=== PATIENT | female | born 1945 | race Caucasian/White ===

== ENCOUNTER 2023-03-24 08:58 | Outpatient (REF) | payer MEDICARE, SELFPAY ==
--- NOTE | ~2023-03-24 | XR_ITS ---
EXAMINATION: XR ANKLE, RIGHT CLINICAL INFORMATION: Pain COMPARISON: None available. TECHNIQUE: AP, lateral, and mortise views of the right ankle. FINDINGS: There is periosteal thickening of the medial malleolus questionable for old trauma or a healing fracture. No acute fracture or dislocation. Arthritis at the tibiotalar joint. Collapse of the plantar arch. Joint space narrowing and osteophyte formation of the bones of the midfoot. Calcaneal spurs. Mild soft tissue arterial calcification. XR/XR ankle RT min 3V IMPRESSION: Question old trauma to the medial malleolus. 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 Calcaneal spurs.
== END 2023-03-24 08:59 | disposition home or self-care (01) ==
LOC: HO.HOSX 08:58
PROVIDERS: PCP Internal Medicine; Visit Provider Physician Assistant
DX: M25.571 Pain in right ankle and joints of right foot (principal); I87.8 Other specified disorders of veins; M54.16 Radiculopathy, lumbar region; T78.40XA Allergy, unspecified, initial encounter
CPT/HCPCS: 73610

== ENCOUNTER 2023-04-21 13:33 | Outpatient (REF) | payer BC, SELFPAY | END 2023-04-21 13:34 | disposition home or self-care (01) | LOC: HO.XRAY 13:33 | PROVIDERS: PCP Internal Medicine; Visit Provider Nurse Practitioner Family | DX: M51.36 Other intervertebral disc degeneration, lumbar region (principal); M47.816 Spondylosis without myelopathy or radiculopathy, lumbar region; M87.0 Idiopathic aseptic necrosis of bone; B35.1 Tinea unguium; M79.671 Pain in right foot; M79.672 Pain in left foot; M25.571 Pain in right ankle and joints of right foot; I83.813 Varicose veins of bilateral lower extremities with pain; M53.3 Sacrococcygeal disorders, not elsewhere classified | CPT/HCPCS: 72114 ==

== ENCOUNTER 2023-06-02 15:19 | Outpatient (AMB) | payer BC, SELFPAY ==
--- NOTE | 2023-06-02 15:25 | A.OFFVIS_ITS ---
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 PRIOR: Patient is a pleasant 77 years old post speaking female presents today with severe bilateral lower extremity pain, right side worse than the left. Patient reports history of right ankle injury followed by repair in 2014. She has localized significant tenderness in both lower ankles and legs is light touch, allodynia, warmth to touch, skin changes and discoloration consistent with venous insufficiency, PVD and PAD, varicose and spider veins with clusters. Patient's family reports the patient underwent vascular evaluation 2 years ago and was told to wear compression stockings and elevate her legs. Patient denies any recent vascular evaluation for worsening of symptoms in both legs. She cannot tolerate pain due to pain and pressure. Her back pain is mostly axial and does not radiate to her legs. SLR testing is negative bilaterally. Patient also has localized tenderness in the projection of bilateral sacroiliac joints. Denies numbness, tingling, burning, bladder or bowel incontinence or saddle anesthesia. No lumbar spine imaging is available today for review. 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 Recent right ankle xray showed question old trauma to the medial malleo angie. 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 Calcaneal spurs. Patient was [place] [facility] [place] and was prescribed topical compound cream. Patient ambulates with significant antalgic gait with limping and uses cane. [facility] Medical History History of high blood pressure History of high cholesterol Social History Alcohol intake: former Patient Tobacco Use Status: Former Tobacco user Current occupational status: retired Review of Systems Const All systems reviewed & are unremarkable except as noted in HPI and below Physical Exam General: Appears afebrile. Alert and oriented. Mood and affect appropriate. Follows and participates in conversation appropriately. Respiratory effort is unlabored. No cough. Able to transition from sit to stand with assistance from family. Uses cane with ambulation. Antalgic gait with limping. Back/Spine/Pelvis Other: Lumbar extension reproduces significant pain, mild pain with flexion. Cervical Spine: cervical ROM normal and No Cervical spine tenderness Thoracic/Lumbar Spine: thoracic and lumbar spine normal to inspection, Lasegue's sign negative, straight leg raise negative bilaterally, pain with thoraco-lumbar ROM, paraspinal muscle tenderness, thoraco-lumbar ROM limited, No thoracic spinal tenderness and lumbar spinal tenderness at L4 and at L5 Sacroiliac joints: bilaterally tender to palpation Results Reviewed Results Reviewed: XR LUMBOSACRAL SPINE WITH OBLIQUES 04/21/23 CLINICAL INFORMATION: Intravertebral disc degeneration. FINDINGS: There is lumbar lordotic straightening. Multilevel mild vertebral body height losses, prolific spurring, spurring and disc space narrowings. No spondylolisthesis or spondylolysis. No significant change on flexion and extension views. Vascular calcifications. IMPRESSION: Lumbar lordotic straightening, multilevel degenerative changes with flexion-extension views as described. Assessment & Plan Assessment & Plan (1) Lumbar degenerative disc disease: Code(s): M51.36 - Other intervertebral disc degeneration, lumbar region (2) Lumbar spondylosis: Code(s): M47.816 - Spondylosis without myelopathy or radiculopathy, lumbar region (3) Sacroiliac joint pain: Code(s): M53.3 - Sacrococcygeal disorders, not elsewhere classified Plan 1. Lumbar spine imaging and report reviewed with patient and her family. Discussed treatments for axial low back pain and sacroiliac joint pain. Her pain is worse with lumbar extension. Patient is interested to proceed with diagnostic lumbar MBB for potential Sprint PNS trial. 2. Schedule Bilateral diagnostic lumbar MBBs nerve blocks with local and fluoroscopy. Anticoagulation on Pradaxa is noted. All questions were answered and the patient is in agreement with the treatment plan. Will follow up after injections and sooner if needed. Anticoagulation: Patient on anticoagulation (Pradaxa) and instructions given on when to pause with prescribing physician permission. Justification for interventional therapy: ? Patient with average pain > 6/10 ? Patient has exhausted conservative therapy The risks, consequences, alternatives, and benefits of various treatment options were discussed with the patient in great detail, including conservative management, injections and procedures. Coding Level of Care Code Est Pt Level 3 (98960) Diagnoses Lumbar degenerative disc disease M51.36 Lumbar spondylosis M47.816 Sacroiliac joint pain M53.3
[2023-06-02 15:28] VITALS: BP 149/77; PULSE 78; O2SAT 96; BMI 32.1
== END 2023-06-02 15:44 | disposition home or self-care (01) ==
PROVIDERS: PCP Internal Medicine; Visit Provider Nurse Practitioner Family
DX: M51.36 Other intervertebral disc degeneration, lumbar region (principal); M47.816 Spondylosis without myelopathy or radiculopathy, lumbar region; M53.3 Sacrococcygeal disorders, not elsewhere classified
CPT/HCPCS: 99213

== ENCOUNTER → 2023-06-02 15:19 | Outpatient (BNVA) | payer BC, SELFPAY | PROVIDERS: PCP Internal Medicine; Visit Provider Nurse Practitioner Family ==

== ENCOUNTER 2023-06-09 13:26 | Outpatient (AMB) | payer BC, SELFPAY ==
--- NOTE | 2023-06-09 13:27 | MHC.OFFVIS ---
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 Pt does have bilateral LE VV and discoloration, has Right LE swelling as well. Pt states she has aching feeling in both legs. Pt has tried wearing custom compression socks but Right LE was so painful to touch, tried wearing them for a while. 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 She reports that this all stems from a right ankle injury in repair dating back to 2014. In the interim she had been seen by vascular surgery at [facility]. They had treated her with compression stockings but had not had any significant follow-up since that time. She now presents to us for vascular evaluation. Of note she has no prior history of DVT or venous interventions. She has difficulty ambulating more than a block and she reports that the right lateral aspect of the calf is extremely sensitive. She can barely touch at times. She notes that the legs are persistently swollen. She now presents to us for vascular evaluation. Of note she quit smoking in 1995 and is a nondiabetic. [facility] Medical History History of high blood pressure History of high cholesterol Social History Alcohol intake: former Patient Tobacco Use Status: Former Tobacco user Current occupational status: retired Review of Systems Const Reports as per HPI ENT Reports no additional complaints Card Denies chest pain, Denies chest pain at rest and Denies chest pain with activity Resp Denies chest congestion and Denies cough GI Reports no additional complaints Musc Details: pain over varicosities, aching of lower extremities, swelling, cramping, heaviness and tiredness, itching Denies abnormal gait Skin/Breast Reports pruritus and Denies wounds Neuro Reports no additional complaints and Denies abnormal gait Psych Denies no additional complaints Physical Exam Vital Signs: BMI result Body Mass Index 32.1 Const General: cooperative, healthy appearing and comfortable Orientation/consciousness: oriented to person, oriented to place and oriented to time Neck Carotids: no bruits Chest Chest palpation & inspection: normal inspection of the chest and normal palpation of entire chest wall Resp Effort & Inspection: normal respiratory effort and able to speak in complete sentences Cardio Other: Bilateral DP signals Rate: regular rate Heart sounds: S1 normal heart sound present and S2 normal heart sound present Peripheral pulses: Peripheral pulses 2+ throughout GI Inspection: Yes normal to inspection Skin Other: +2 edema, large rope-like varicosities greater than 4 mm CEAP Classification C4 - skin color changes Ep - Etiology Primary As - superficial veins P - reflux General skin exam: dry skin Neuro General: oriented to person, oriented to place and oriented to time Extrem Right lower extremity: full ROM, normal capillary refill and edema Left lower extremity: full ROM, normal capillary refill and edema Psych Mental Status: mental status grossly normal Assessment & Plan Assessment & Plan (1) PAD (peripheral artery disease): Code(s): I73.9 - Peripheral vascular disease, unspecified Plan: Of concern here is that the patient may have an element of peripheral vascular disease. She has nonpalpable pulses and a remote history of smoking. I have taken the liberty of ordering noninvasive arterial testing and the patient will follow up with us after testing. (2) Varicose veins of right lower extremity with inflammation: Code(s): I83.11 - Varicose veins of right lower extremity with inflammation Plan: The patient may have an element of venous insufficiency. She does have significant swelling with pain and discomfort along with skin discoloration. Is unclear what the findings were approximately [address] Ghosh at [facility] but I have taken the liberty of ordering repeat venous insufficiency testing. She will follow up with us after testing. We did discuss continued conservative measures including compression elevation and exercise. Thank you for allowing us to assist in her care. If there are any questions or concerns please do not hesitate to contact us Coding Level of Care Code Est Pt Level 4 (91362) Diagnoses PAD (peripheral artery disease) I73.9 Varicose veins of right lower extremity with inflammation I83.11
[2023-06-09 13:28] VITALS: BMI 32.1
== END 2023-06-09 13:59 | disposition home or self-care (01) ==
PROVIDERS: PCP Internal Medicine; Visit Provider Surgery Vascular Surgery
DX: I73.9 Peripheral vascular disease, unspecified (principal); I83.11 Varicose veins of right lower extremity with inflammation
CPT/HCPCS: 99214

== ENCOUNTER → 2023-06-09 13:26 | Outpatient (BNVA) | payer BC, SELFPAY | PROVIDERS: PCP Internal Medicine; Visit Provider Surgery Vascular Surgery ==

== ENCOUNTER 2023-07-15 05:59 | Outpatient (REF) | payer BC, SELFPAY ==
--- NOTE | ~2023-07-15 | FL_ITS ---
EXAMINATION: XR FLUOROSCOPY WITH IMAGES CLINICAL INFORMATION: Spondylosis without myelopathy or radiculopathy, lumbar region COMPARISON: None available. TECHNIQUE: Fluoroscopy Supervised By: Dr. Chencho Campbell. Fluoroscopy Time: 0.2 minutes. Cumulative Dose: 3.63 mGy. DAP: 0.0355 mGycm2. Images: 3. FINDINGS: Images demonstrate needles and injected contrast the regions of the bilateral L4-L5 and L5-S1 neural foramina. FL/FL guidance in treatment room IMPRESSION: Fluoroscopy provided for pain management procedure.
== END 2023-07-15 06:00 | disposition home or self-care (01) ==
LOC: CF 05:59
PROVIDERS: Visit Provider Internal Medicine
DX: M47.816 Spondylosis without myelopathy or radiculopathy, lumbar region (principal)
CPT/HCPCS: 64493; 64494; J2795; Q9967

== ENCOUNTER 2023-07-15 08:06 | Outpatient (AMB) | payer BC, SELFPAY ==
[2023-07-15 08:14] VITALS: BP 120/72; PULSE 76; RESP 14; O2SAT 96
--- NOTE | 2023-07-15 08:14 | A.OFFVIS_ITS ---
Intake Vital Signs 07/15/23 08:14 BP 120/72 Blood Pressure Location Lt brachial Position Sitting Respiration 14 Pulse 76 Pulse Source Pulse Oximeter Pulse Oximetry (%) 96 Oxygen Delivery Method Room Air Intake Visit Reasons: viraj Dx L3-L4-L5 MBB Allergies MULU Inhibitors Allergy (Unknown, Verified 07/15/23 08:15) Unknown amlodipine Allergy (Unknown, Verified 07/15/23 08:15) Angioedema atenolol Allergy (Unknown, Verified 07/15/23 08:15) Palpitations trospium Allergy (Unknown, Verified 07/15/23 08:15) Gastrointestinal Upset HPI viraj Dx L3-L4-L5 MBB HPI Details Patient presents for scheduled procedure. Denies any recent cough, cold, infection, fever or other significant changes in medical history since last office visit. [facility] Medical History History of high blood pressure History of high cholesterol Social History Alcohol intake: former Patient Tobacco Use Status: Former Tobacco user Current occupational status: retired Physical Exam Vital Signs: Last Vital Signs Pulse 76 07/15/23 08:14 Resp 14 07/15/23 08:14 BP 120/72 07/15/23 08:14 Pulse Ox 96 07/15/23 08:14 Oxygen Delivery Method Room Air 07/15/23 08:14 Office Procedures Lumbar/Sacral Facet Inj Details: Lumbar Medial Branch Block, Bilateral L3, L4 medial branches and L5 Dorsal Ramus (2 levels, 3 nerves) After obtaining written consent, pre-procedure blood pressure and pulse were recorded and are in the nursing record for review. The patient was placed in a prone position. The respective lumbosacral area was prepped with chloraprep and draped in sterile fashion. The skin over the target medial branch nerves was anesthetized with 0.5% lidocaine. A 22 gauge 3.5 inch needle was inserted into the target medial branch nerve under fluoroscopic guidance. No paresthesias were elicited with needle placement and aspiration was negative for blood and CSF. Next, 0.2cc of Isovue 150 was injected to verify positioning. Next 0.5 ml 0.5% ropivicaine was injected (0.5cc total per level). The identical procedure was performed at the remaining levels. The skin was cleansed and a sterile bandage was applied. Following the procedure the patient's vital signs were stable. The patient tolerated the procedure well and no complications were encountered. Following the procedure the patient's vital signs were stable. The patient was discharged home in good condition with post-procedural instructions. Time Out: Immediately prior to the procedure, the following was verbally confirmed that there is a signed consent form and that the correct patient, planned procedure, site and side are consistent with documentation and that necessary equipment and/or blood products are available prior to the start of the case. Complications: none EBL: <5 cc 28174 - second level, with Fluoroscopy (bilateral) Procedure code (CPT) selection complete Assessment & Plan Assessment & Plan (1) Lumbar spondylosis: Code(s): M47.816 - Spondylosis without myelopathy or radiculopathy, lumbar region Plan Patient is status post bilateral diagnostic L3, L4 MB and L5 DR blocks. Patient tolerated procedure well and was discharged home in stable condition with discharge instructions. All questions were answered. We will follow-up via telephone or in clinic to assess response to therapy. A follow-up appointment was made during today's visit. Orders: Orders FL guidance in treatment room 07/15/23 M47.816 - Spondylosis without myelopathy or radiculopathy, lumbar region Coding Level of Care Code Procedure Only Diagnoses Lumbar spondylosis M47.816 CPT Codes Facet Injection-Lumbar/Sacral - CPT: 42954 - second level, with Fluoroscopy ([id number])
== END 2023-07-15 08:52 | disposition home or self-care (01) ==
LOC: HO.PMCPRC 08:06
PROVIDERS: PCP Internal Medicine; Visit Provider Internal Medicine
DX: M47.816 Spondylosis without myelopathy or radiculopathy, lumbar region (principal)
CPT/HCPCS: 64493; 64494

== ENCOUNTER 2023-07-17 09:06 | Outpatient (AMB) | payer BC, SELFPAY ==
--- NOTE | 2023-07-17 09:07 | MHC.OFFVIS ---
Intake Vital Signs 07/17/23 09:11 Height 5 ft 1 in Weight 169 lb 8 oz BMI 32.0 BP 134/68 Blood Pressure Location Lt brachial Position Sitting Pulse 80 Pulse Source Pulse Oximeter Pulse Oximetry (%) 96 Oxygen Delivery Method Room Air Intake Visit Reasons: s/p viraj Dx L3-L4-L5 MBB Intake Note: Pain today 0/10. 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 Campbell. Patient is Kinyarwanda speaking female. She is accompanied by her family who assist with translation per patient's request. Patient reports 100% pain relief since procedure on Thursday and continues to experience ongoing pain relief. Patient reports her activity, mobility, functioning and sleep significantly improved since nerve blocks. She is able to complete house chores and social activities without pain for these past 2 days. Patient states she had short right lateral thigh and lower leg numbness without weakness for few hours post procedures that resolved on its own. Patient is interested to proceed with Sprint PNS trial, starting with right side first. Her family reports they feel comfortable to care for patient's Sprint device and change dressings for 2 months of therapy. Denies any recent cough, cold, infection, fever or other significant changes in medical history since last office visit. Past Procedures: 07/15/23: Bilateral Diagnostic L3-L4 DR L5 MB-100% pain relief for 48 hours PRIOR: Patient is a pleasant 77 years old post speaking female presents today with severe bilateral lower extremity pain, right side worse than the left. Patient reports history of right ankle injury followed by repair in 2014. She has localized significant tenderness in both lower ankles and legs is light touch, allodynia, warmth to touch, skin changes and discoloration consistent with venous insufficiency, PVD and PAD, varicose and spider veins with clusters. Patient's family reports the patient underwent vascular evaluation 2 years ago and was told to wear compression stockings and elevate her legs. Patient denies any recent vascular evaluation for worsening of symptoms in both legs. She cannot tolerate pain due to pain and pressure. Her back pain is mostly axial and does not radiate to her legs. SLR testing is negative bilaterally. Patient also has localized tenderness in the projection of bilateral sacroiliac joints. Denies numbness, tingling, burning, bladder or bowel incontinence or saddle anesthesia. No lumbar spine imaging is available today for review. 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 Recent right ankle xray showed question old trauma to the medial malleolus. 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 Calcaneal spurs. Patient was seen by our [facility] Orthopedic provider and was prescribed topical compound cream. Patient ambulates with significant antalgic gait with limping and uses cane. [facility] Medical History History of high blood pressure History of high cholesterol Social History Alcohol intake: former Patient Tobacco Use Status: Former Tobacco user Current occupational status: retired Review of Systems Const All systems reviewed & are unremarkable except as noted in HPI and below Physical Exam Vital Signs: Last Vital Signs Pulse 80 07/17/23 09:11 BP 134/68 07/17/23 09:11 Pulse Ox 96 07/17/23 09:11 Oxygen Delivery Method Room Air 07/17/23 09:11 BMI result Body Mass Index 32.0 General: Appears afebrile. Alert and oriented. Mood and affect appropriate. Follows and participates in conversation appropriately. Respiratory effort is unlabored. No cough. Able to transition from sit to stand with assistance from family. Uses cane with ambulation. Antalgic gait with limping. Back/Spine/Pelvis Other: Lumbar extension reproduces significant pain, mild pain with flexion. Cervical Spine: cervical ROM normal and No Cervical spine tenderness Thoracic/Lumbar Spine: thoracic and lumbar spine normal to inspection, Lasegue's sign negative, straight leg raise negative bilaterally, pain with thoraco-lumbar ROM, paraspinal muscle tenderness, thoraco-lumbar ROM limited, No thoracic spinal tenderness and lumbar spinal tenderness at L4 and at L5 Sacroiliac joints: bilaterally tender to palpation Assessment & Plan Assessment & Plan (1) Lumbar degenerative disc disease: Code(s): M51.36 - Other intervertebral disc degeneration, lumbar region (2) Lumbar spondylosis: Code(s): M47.816 - Spondylosis without myelopathy or radiculopathy, lumbar region (3) Sacroiliac joint pain: Code(s): M53.3 - Sacrococcygeal disorders, not elsewhere classified Plan 1. Patient is status post bilateral diagnostic lumbar MBB nerve blocks with 100% ongoing pain relief with significant improvement in her ADLs, functioning, sleep and social interactions. 2. Schedule Bilateral L3 medial branch Sprint PNS trial with local and fluoroscopy. Anticoagulation on Pradaxa is noted. All questions were answered and the patient is in agreement with the treatment plan. Follow up after Sprint trial and sooner if needed. Anticoagulation: Patient on anticoagulation (Pradaxa) and instructions given on when to pause with prescribing physician permission. Justification for interventional therapy: ? Patient with average pain > 6/10 ? Patient has exhausted conservative therapy ? Diagnostic lumbar MBB provided 100% for 48 hours The risks, consequences, alternatives, and benefits of various treatment options were discussed with the patient in great detail, including conservative management, injections and procedures. Coding Level of Care Code Est Pt Level 4 (85779) Diagnoses Lumbar degenerative disc disease M51.36 Lumbar spondylosis M47.816 Sacroiliac joint pain M53.3
[2023-07-17 09:11] VITALS: BP 134/68; PULSE 80; O2SAT 96; BMI 32.0
== END 2023-07-17 09:30 | disposition home or self-care (01) ==
PROVIDERS: PCP Internal Medicine; Visit Provider Nurse Practitioner Family
DX: M51.36 Other intervertebral disc degeneration, lumbar region (principal); M47.816 Spondylosis without myelopathy or radiculopathy, lumbar region; M53.3 Sacrococcygeal disorders, not elsewhere classified
CPT/HCPCS: 99214

== ENCOUNTER → 2023-07-17 09:06 | Outpatient (BNVA) | payer BC, SELFPAY | PROVIDERS: PCP Internal Medicine; Visit Provider Nurse Practitioner Family ==

== ENCOUNTER 2023-07-28 10:29 | Outpatient (REF) | payer MEDICARE, SELFPAY ==
--- NOTE | ~2023-07-28 | US_ITS ---
EXAMINATION: US LOWER EXTREMITY VENOUS (REFLUX EXAM), BILATERAL CLINICAL INDICATION: Varicose veins of the right lower extremity COMPARISON: None. TECHNIQUE: Color flow triplex imaging and compression Doppler was performed to evaluate both the deep and the superficial systems bilaterally. To evaluate the superficial system, the examination was performed in the upright position. Color-flow Doppler ultrasound and compression ultrasound were utilized. In addition, maneuvers were utilized to demonstrate reflux. FINDINGS: RIGHT: 1. DEEP VENOUS ULTRASOUND OF THE RIGHT LOWER EXTREMITY: Common Femoral Vein: Compressible, normal respiratory variation and augmented flow. Popliteal Vein: Compressible, normal augmentation. Deep Venous Reflux: There is no evidence of reflux in the deep system in either the common femoral vein or the popliteal vein. There is no evidence of a Pan's cyst. 2. SUPERFICIAL ULTRASOUND WITH DOPPLER OF RIGHT LOWER EXTREMITY: RIGHT GREAT SAPHENOUS VEIN: Saphenofemoral Junction: 4 mm. No reflux. Proximal Thigh: 4 mm. No reflux. Mid Thigh: 2 mm. No reflux. Above Knee: 3 mm. No reflux. Below Knee: 3 mm. 2528 ms of reflux. Mid Calf: 2 mm. No reflux. Ankle: 3 mm. No reflux. DUPLICATED GREAT SAPHENOUS VEIN: None RIGHT SMALL SAPHENOUS VEIN: Proximal: 2 mm. 2416 ms of reflux. Distal: 2 mm. 2132 ms of reflux. PERFORATORS: None LEFT: 1. DEEP VENOUS ULTRASOUND OF THE LEFT LOWER EXTREMITY: Common Femoral Vein: Compressible, normal respiratory variation and augmented flow. Popliteal Vein: Compressible, normal augmentation. Deep Venous Reflux: There is no evidence of reflux in the deep system in either the common femoral vein or the popliteal vein. There is no evidence of a Pan's cyst. 2. SUPERFICIAL ULTRASOUND WITH DOPPLER OF LEFT LOWER EXTREMITY: LEFT GREAT SAPHENOUS VEIN: Saphenofemoral Junction: 5 mm. No reflux. Proximal Thigh: 6 mm. 2820 ms of reflux. Mid Thigh: 3 mm. 1932 ms of reflux. Above Knee: 2 mm. No reflux. Below Knee: 3 mm. No reflux. Mid Calf: 3 mm. 4 to 8 milliseconds of reflux. Ankle: 3 mm. No reflux. DUPLICATED GREAT SAPHENOUS VEIN: None LEFT SMALL SAPHENOUS VEIN: Proximal: 3 mm. No reflux. Mid: 4 mm. 2344 ms of reflux. Distal: 3 mm. No reflux. PERFORATORS: None US/US venous duplex LE BI IMPRESSION: Right lower extremity: 1. Abnormal venous reflux seen within the right small saphenous vein. 2. Abnormal venous reflux within a short segment of the right great saphenous vein at the level below the knee. 3. No evidence of deep vein thrombosis. Left lower extremity: 1. Abnormal venous reflux within the left great saphenous vein at the level of the proximal and mid thigh. 2. Abnormal short segment venous reflux within the left saphenous vein at the level of the mid calf. 3. No evidence of deep vein thrombosis. Abnormal lower extremity venous reflux times: Superficial and deep calf veins: >500 ms Femoropopliteal veins: >1000 ms Perforating veins: >350 ms Emiliana N, Avelino J, Alexey L, Hernan AK, Luis SS, Katharine Sarmiento M, Viviane WH. Definition of venous reflux in lower-extremity veins.J Vasc Surg. 2003; 38:[id number].
== END 2023-07-28 10:30 | disposition home or self-care (01) ==
LOC: HO.US 10:29
PROVIDERS: PCP Internal Medicine; Visit Provider Surgery Vascular Surgery
DX: I83.11 Varicose veins of right lower extremity with inflammation (principal)
CPT/HCPCS: 93970

== ENCOUNTER 2023-08-04 13:32 | Outpatient (REF) | payer MEDICARE, SELFPAY ==
--- NOTE | ~2023-08-04 | US_ITS ---
EXAMINATION: NONINVASIVE ASSESSMENT OF THE ARTERIES OF BOTH LOWER EXTREMITIES INCLUDING PVR EXAM AND BILATERAL LOWER EXTREMITY DUPLEX CLINICAL INFORMATION: Peripheral vascular disease COMPARISON: None TECHNIQUE: Ankle pulse volume recordings, ankle pressure measurements and ankle brachial indices were obtained of the lower extremity arterial system bilaterally in addition to duplex Doppler techniques with wave form analysis and measurement of velocities in the common femoral, profunda femoral, superficial femoral, popliteal, tibial and peroneal arteries. The study was performed only at rest. FINDINGS: RIGHT LEG 1. Right Ankle-Brachial Index: 0.89 (higher of the DP/PT) >0.97-1.25 = normal - no significant arterial disease 0.75-0.96 = mild peripheral arterial disease 0.5-0.74 = moderate peripheral arterial disease <0.50 = severe peripheral arterial disease <0.30 = critical arterial disease 2. Segmental Pressures (mmHg): Brachial: 138 Ankle: DP 140, unable to tolerate contrast for posterior tibial 3. PVR Waveforms: Ankle: Abnormal 4. Direct Duplex: Common femoral artery: 124 cm/s, Multiphasic Profunda femoris artery: 43.9 cm/s, Multiphasic Superficial femoral artery (proximal): 79.6 cm/s, Multiphasic Superficial femoral artery (mid): 108 cm/s, Multiphasic Superficial femoral artery (distal): 61.5 cm/s, Multiphasic Proximal Popliteal artery: 65 cm/s, Multiphasic Distal popliteal artery: 44.5 cm/s, Multiphasic Mid posterior tibial artery: 58.5 cm/s, Multiphasic Proximal peroneal artery: 41.9 cm/s, Multiphasic Distal peroneal artery: 23.9 cm/s, monophasic Dorsalis pedis: 43.9 cm/s, multiphasic LEFT LE. Left Ankle-Brachial Index: 0.68 (higher of the DP/PT) >0.97-1.25 = normal - no significant arterial disease 0.75-0.96 = mild peripheral arterial disease 0.5-0.74 = moderate peripheral arterial disease <0.50 = severe peripheral arterial disease <0.30 = critical arterial disease 2. Segmental Pressures: Brachial: 158 Ankle: PT 76, DP 108 3. PVR Waveforms: Ankle: Abnormal 4. Direct Duplex: Common femoral artery: 124 cm/s, Multiphasic Profunda femoris artery: 36.9 cm/s, Multiphasic Superficial femoral artery (proximal): 56.4 cm/s, Multiphasic Superficial femoral artery (mid): 70.2 cm/s, Multiphasic Superficial femoral artery (distal): 60.8 cm/s, monophasic There is a collateral vessel of the distal femoral artery with peak systolic velocity 51.5 cm/s. Waveform is monophasic. Proximal Popliteal artery: 52.5 cm/s, Multiphasic Distal popliteal artery: 18.7 cm/s, monophasic Mid posterior tibial artery: 15.1 cm/s, monophasic Peroneal artery: 33.8 cm/s, monophasic Dorsalis pedis: 48 cm/s, monophasic US/US arterial duplex LE BI IMPRESSION: On the right the ankle-brachial index is 0.89 compatible with mild peripheral arterial disease. PVR waveforms low amplitude and abnormal. Other than the peroneal artery, where the waveform is monophasic, there is multiphasic flow throughout the right lower extremity. On the left ankle-brachial index is 0.68 compatible with moderate peripheral arterial disease. There are monophasic waveforms at the level of the distal femoral artery and distal popliteal artery suggesting disease at the proximal to midportion of the superficial femoral and popliteal arteries.
== END 2023-08-04 13:33 | disposition home or self-care (01) ==
LOC: HO.US 13:32
PROVIDERS: PCP Internal Medicine; Visit Provider Surgery Vascular Surgery
DX: I73.9 Peripheral vascular disease, unspecified (principal)
CPT/HCPCS: 93923; 93925

== ENCOUNTER 2023-08-26 08:22 | Day surgery (SDC) | payer MEDICARE, SELFPAY ==
--- NOTE | ~2023-08-26 | FL_ITS ---
EXAMINATION: XR FLUOROSCOPY WITH IMAGES CLINICAL INFORMATION: Right lumbar 3 medial branch SPRINT. COMPARISON: None available. TECHNIQUE: Fluoroscopy Supervised By: Dr. Chencho Campbell. Fluoroscopy Time: 0.1 minute. Cumulative Dose: 3.29 mGy. DAP: 0.549 Gycm2. Images: 2. FINDINGS: Images demonstrate leads adjacent to posterior right lateral L4 and L5 vertebrae FL/FL guidance in OR IMPRESSION: Fluoroscopy guidance for pain management
[2023-08-26 08:48] VITALS: BMI 31.1
[2023-08-26 08:50] VITALS: BP 166/86; PULSE 82; RESP 16; TEMP 36.2; O2SAT 97
--- NOTE | 2023-08-26 11:02 | MHC.SHP ---
Pre-Procedural Eval Section A Date of Service: 08/26/23 The patient is an INPATIENT: No Changes since office visit: Yes Patient answered all questions The History & Physical has been completed within 30 days and I have reviewed it.: Yes Section B Chief Complaint: Spondylosis without myelopathy or radiculopathy Relevant Family History (Specify if Yes): No Relevant Social History: None Present Medications: see Short Stay Collaborative assessment Medical History: No relevant PMH History of Previous Operations: No relevant previous surgery Allergies: Allergies Allergy/AdvReac Type Severity Reaction Status Date / Time MULU Inhibitors Allergy Unknown Unknown Verified 08/26/23 08:40 amlodipine Allergy Unknown Angioedema Verified 08/26/23 08:40 atenolol Allergy Unknown Palpitation Verified 08/26/23 08:40 s trospium Allergy Unknown Gastrointestinal Verified 08/26/23 08:40 Upset Review of Systems Sugical H&P ROS: Negative: Constitution, Cardiovascular and Respiratory Exam Surgical H&P Exam: Normal: HEENT, Normal: Heart and Normal: Lungs Plan Diagnosis/Plan: Unchanged I have reviewed the history and physical and performed a pertinent physical examination on my patient. No changes have occurred unless specified. Time Spent With Patient Time: Total time managing care of this patient today ____ minutes.
--- NOTE | 2023-08-26 11:02 | PM.OP ---
Brief Operative Note Date of Service: 08/26/23 Pre-op diagnosis: Intractable low back pain Post-op diagnosis: same Procedure: Temporary right L3 medial branch nerve stimulator placement Implants: Sprint temporary PNS system Surgeon: Chencho Campbell MD Anesthesia: local Was an Animal Cytologist used for this Procedure?: No Estimated blood loss (mL): 0 Pathology: none sent Condition: stable Disposition: same day
--- NOTE | 2023-08-26 11:03 | W.PM.OPN ---
Operative Note Operative Note Date of Service: 08/26/23 Narrative: Lumbar Medial Branch Nerve Stimulation Lead Placement, SPR (Sprint) System, Right L3 ? After the risks, benefits and alternatives were discussed with the patient and informed consent was obtained, patient was placed in the prone position and padded to foster comfort. The skin overlying the lumbosacral spine was prepped and draped in sterile fashion. Fluoroscopy was used to identify the spinous process and lamina in the center of the patient?s region of pain. After identifying and marking the intended target along the course of the medial branch nerve, the skin around the planned entry point and the subcutaneous tissues were injected with lidocaine 1%. An introducer needle and stimulating probe were assembled, inserted and advanced along the intended course of the medial branch nerve as it traverses the lamina medial and inferior to the zygapophyseal joint, taking care to maintain the proper depth of insertion as the introducer is advanced under fluoroscopic guidance. The introducer needle was delivered to a location in proximity to the nerve. Multiple stimulation parameters were used to deliver stimulation to the target medial branch nerve in concert with stimulating at multiple positions around the nerve. Nerve target acquisition was confirmed noting generation of paresthesias in the paravertebral regions corresponding to the level being stimulated. Various electrical parameter combinations were tested, and the lead location was adjusted (physically relocated) until the patient indicated paresthesia/muscle tension overlapping the distribution of the patient?s typical region of pain. The stimulating probe was removed from the introducer and a percutaneous lead was guided through the needle and delivered to a location in similar proximity to the nerve. Final location was verified with electrical stimulation and documented with fluoroscopy. The introducer needle was removed, and the exposed end of the percutaneous lead was attached to an external stimulator unit. Various electrical parameter combinations were again tested until the patient indicated paresthesia or muscle tension overlapping the distribution of the patient?s typical region of pain. After confirming that lead impedance was in the normal range, the external unit was detached, the needle was removed, and the lead was anchored at the skin. The lead was threaded into the connector block and electrical continuity and desired patient response was confirmed. The connector block was attached to the external stimulator unit. The site was covered with a sterile occlusive dressing. The patient was observed for stability of vital signs and comfort.
[2023-08-26 11:05] VITALS: BP 148/81; PULSE 82; RESP 16; TEMP 36.2; O2SAT 95
== END 2023-08-26 11:39 | disposition home or self-care (01) ==
PROVIDERS: PCP Internal Medicine; Visit Provider Internal Medicine
PROC: (CPT 64555; principal; 2023-08-26 09:30)
DX: M47.816 Spondylosis without myelopathy or radiculopathy, lumbar region (principal); M51.36 Other intervertebral disc degeneration, lumbar region; M53.3 Sacrococcygeal disorders, not elsewhere classified; M25.571 Pain in right ankle and joints of right foot; M19.071 Primary osteoarthritis, right ankle and foot; M25.572 Pain in left ankle and joints of left foot; M79.661 Pain in right lower leg; M79.662 Pain in left lower leg; R26.89 Other abnormalities of gait and mobility; Z99.89 Dependence on other enabling machines and devices; I10 Essential (primary) hypertension; E78.00 Pure hypercholesterolemia, unspecified; Z79.899 Other long term (current) drug therapy; Z88.8 Allergy status to other drugs, medicaments and biological substances; Z98.890 Other specified postprocedural states; Z87.891 Personal history of nicotine dependence
CPT/HCPCS: 64555; C1778

== ENCOUNTER → 2023-08-26 08:22 | Outpatient (BNV) | payer MEDICARE, SELFPAY | PROVIDERS: PCP Internal Medicine; Visit Provider Internal Medicine | DX: M47.816 Spondylosis without myelopathy or radiculopathy, lumbar region (principal) | CPT/HCPCS: 64555 ==

== ENCOUNTER 2023-09-01 10:10 | Outpatient (AMB) | payer BC, SELFPAY ==
--- NOTE | 2023-09-01 10:18 | MHC.OFFVIS ---
Intake Vital Signs 09/01/23 10:22 Height 5 ft 2 in Weight 170 lb BMI 31.1 BP 141/62 H Blood Pressure Location Lt brachial Position Sitting Pulse 56 Pulse Source Pulse Oximeter Pulse Oximetry (%) 98 Oxygen Delivery Method Room Air Intake Visit Reasons: s/p Right L3 MB Sprint Allergies MULU Inhibitors Allergy (Unknown, Verified 09/01/23 10:22) Unknown amlodipine Allergy (Unknown, Verified 09/01/23 10:22) Angioedema atenolol Allergy (Unknown, Verified 09/01/23 10:22) Palpitations trospium Allergy (Unknown, Verified 09/01/23 10:22) Gastrointestinal Upset HPI HPI Comments History of Present Illness Details Patient presents today to assess response to Right L3 medial branch Sprint PNS lead placement on 08/26/[address] Campbell. Patient is Spanish speaking female and is accompanied by her daughter who assists with translation per patient's request. Patient reports 100% pain relief for right axial low back pain and reports minimal improvement in her left sided back pain as well. She reports improved functioning, mobility and sleep. She is scheduled to undergo left L3 MB Sprint lead placement next Thursday. Her daughter reports she feels comfortable to care for patient's Sprint device and change dressings. Alfredo Frederick is present today and changed patient's dressing and instructed family on device care and dressing changes. Denies any recent cough, cold, infection, fever or other significant changes in medical history since last office visit. The dressing was removed and changed today by Alfredo Frederick. Lead insertion sites look clean, dry, intact, no redness, no swelling, no pathological discharge. Past Procedures: 08/26/23: Right L3 MB Sprint PNS-100% pain relief 07/15/23: Bilateral Diagnostic L3-L4 DR L5 MB-100% pain relief for 48 hours PRIOR: Patient is a pleasant 77 years old post speaking female presents today with severe bilateral lower extremity pain, right side worse than the left. Patient reports history of right ankle injury followed by repair in 2014. She has localized significant tenderness in both lower ankles and legs is light touch, allodynia, warmth to touch, skin changes and discoloration consistent with venous insufficiency, PVD and PAD, varicose and spider veins with clusters. Patient's family reports the patient underwent vascular evaluation 2 years ago and was told to wear compression stockings and elevate her legs. Patient denies any recent vascular evaluation for worsening of symptoms in both legs. She cannot tolerate pain due to pain and pressure. Her back pain is mostly axial and does not radiate to her legs. SLR testing is negative bilaterally. Patient also has localized tenderness in the projection of bilateral sacroiliac joints. Denies numbness, tingling, burning, bladder or bowel incontinence or saddle anesthesia. No lumbar spine imaging is available today for review. 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 Recent right ankle xray showed question old trauma to the medial malleolus. 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 Calcaneal spurs. Patient was seen by our [facility] Orthopedic provider and was prescribed topical compound cream. Patient ambulates with significant antalgic gait with limping and uses cane. [facility] Medical History History of high blood pressure History of high cholesterol Social History Alcohol intake: former Patient Tobacco Use Status: Former Tobacco user Current occupational status: retired Review of Systems Const All systems reviewed & are unremarkable except as noted in HPI and below Physical Exam Vital Signs: Last Vital Signs Pulse 56 09/01/23 10:22 BP 141/62 H 09/01/23 10:22 Pulse Ox 98 09/01/23 10:22 Oxygen Delivery Method Room Air 09/01/23 10:22 BMI result Body Mass Index 31.1 General: Appears afebrile. Alert and oriented. Mood and affect appropriate. Follows and participates in conversation appropriately. Respiratory effort is unlabored. No cough. Able to transition from sit to stand with assistance from family. Uses cane with ambulation. Lead Insertion Site: Lead insertion sites look clean, dry, intact. Dressing changed in clinic today. Positive paresthesia at right low back at 74-80. Assessment & Plan Assessment & Plan (1) Lumbar degenerative disc disease: Code(s): M51.36 - Other intervertebral disc degeneration, lumbar region (2) Lumbar spondylosis: Code(s): M47.816 - Spondylosis without myelopathy or radiculopathy, lumbar region Plan 1. Patient is status post Right L3 MB Sprint lead placement on 08/26/23 with 100% ongoing pain relief with significant improvement in her ADLs, functioning, sleep and social interactions. She is scheduled for left side Sprint placement on 09/09/23. Anticoagulation on Pradaxa is noted instructions given on when to pause with prescribing physician permission. Family and patient educated on dressing changes and care of device. All questions were answered and the patient is in agreement with the treatment plan. Follow up after left Sprint placement and sooner if needed. Coding Level of Care Code Est Pt Level 3 (96168) Diagnoses Lumbar degenerative disc disease M51.36 Lumbar spondylosis M47.816
[2023-09-01 10:22] VITALS: BP 141/62; PULSE 56; O2SAT 98; BMI 31.1
== END 2023-09-01 10:36 | disposition home or self-care (01) ==
PROVIDERS: PCP Internal Medicine; Visit Provider Nurse Practitioner Family
DX: M51.36 Other intervertebral disc degeneration, lumbar region (principal); M47.816 Spondylosis without myelopathy or radiculopathy, lumbar region
CPT/HCPCS: 99024

== ENCOUNTER → 2023-09-01 10:10 | Outpatient (BNVA) | payer BC, SELFPAY | PROVIDERS: PCP Internal Medicine; Visit Provider Nurse Practitioner Family ==

== ENCOUNTER 2023-09-03 14:47 | Outpatient (AMB) | payer BC, SELFPAY ==
--- NOTE | 2023-09-03 14:46 | MHC.OFFVIS ---
Intake Intake Visit Reasons: follow up Art US 08/04/2023 & 07/28/23 Intake Note: Pt here for FU ART US 08/04/23 and 07/28/23 Pt says shes doing ok and theres not many changes since her last visit Allergies MULU Inhibitors Allergy (Unknown, Verified 09/03/23 14:50) Unknown amlodipine Allergy (Unknown, Verified 09/03/23 14:50) Angioedema atenolol Allergy (Unknown, Verified 09/03/23 14:50) Palpitations trospium Allergy (Unknown, Verified 09/03/23 14:50) Gastrointestinal Upset HPI follow up Art 08/04/2023 & US 07/28/23 HPI Details Very pleasant 78-year-old female presents for follow-up regarding lower extremities. She has persistent pain dating back to 2014 after in injury to the right ankle. She had been seen by [facility] vascular in the past. She now presents for follow-up with us regarding arterial and venous disease. She has had no interval changes. Of note she has been treated by Dr. Campbell who has placed a lumbar medial branch nerve stimulator. Now presents for follow-up with noninvasive arterial and venous testing. [facility] Medical History History of high blood pressure History of high cholesterol Social History Alcohol intake: former Patient Tobacco Use Status: Former Tobacco user Current occupational status: retired Review of Systems Const Reports as per HPI ENT Reports no additional complaints Card Denies chest pain, Denies chest pain at rest and Denies chest pain with activity Resp Denies chest congestion and Denies cough GI Reports no additional complaints Musc Details: pain over varicosities, aching of lower extremities, swelling, cramping, heaviness and tiredness, itching Denies abnormal gait Skin/Breast Reports pruritus and Denies wounds Neuro Reports no additional complaints and Denies abnormal gait Psych Denies no additional complaints Physical Exam Const General: cooperative, healthy appearing and comfortable Orientation/consciousness: oriented to person, oriented to place and oriented to time Neck Carotids: no bruits Chest Chest palpation & inspection: normal inspection of the chest and normal palpation of entire chest wall Resp Effort & Inspection: normal respiratory effort and able to speak in complete sentences Cardio Other: Bilateral DP signals Rate: regular rate Heart sounds: S1 normal heart sound present and S2 normal heart sound present Peripheral pulses: Peripheral pulses 2+ throughout GI Inspection: Yes normal to inspection Skin Other: +2 edema, bilateral pretibial skin discoloration CEAP Classification C4 - skin color changes Ep - Etiology Primary As - superficial veins P - reflux General skin exam: dry skin Neuro General: oriented to person, oriented to place and oriented to time Extrem Right lower extremity: full ROM, normal capillary refill and edema Left lower extremity: full ROM, normal capillary refill and edema Psych Mental Status: mental status grossly normal Results Reviewed Results Reviewed: Brief summary of venous insufficiency testing is as follows: right great saphenous vein: Focally positive right small saphenous vein: Positive right accessory vein: none present left great saphenous vein: Focally poss left small saphenous vein: Positive left accessory vein: none present Please note there is no evidence of any venous aneurysms or significant tortuosity Arterial testing demonstrates AARON on the right of 0.89 and on the left of 0.68 written report and images were reviewed. Assessment & Plan Assessment & Plan (1) Varicose veins of right lower extremity with inflammation: Code(s): I83.11 - Varicose veins of right lower extremity with inflammation Plan: In short patient does have some venous disease. At the current time she would like to have her back in nerve issues addressed. I do not believe that this is causing her sensitivity of the leg. The venous disease may contribute to some of the swelling and discoloration of the leg. She will reach out to us when she is ready for treatment. At the current time we did discuss conservative measures including compression elevation and exercise. The patient will follow up with us on an as-needed basis. (2) PAD (peripheral artery disease): Code(s): I73.9 - Peripheral vascular disease, unspecified Plan: Arterial testing is within normal limits at the current time. She appears to be walking fairly well. Would recommend surveillance follow-up in about 3-5 more years. She will call us in regards to her venous disease. Thank you for allowing us to assist in her care. If there are any questions or concerns please do not hesitate to contact us. Coding Level of Care Code Est Pt Level 4 (00738) Diagnoses Varicose veins of right lower extremity with inflammation I83.11 PAD (peripheral artery disease) I73.9
== END 2023-09-03 15:06 | disposition home or self-care (01) ==
LOC: HO.HVS 14:47
PROVIDERS: PCP Internal Medicine; Visit Provider Surgery Vascular Surgery
DX: I83.11 Varicose veins of right lower extremity with inflammation (principal); I73.9 Peripheral vascular disease, unspecified
CPT/HCPCS: 99213

== ENCOUNTER → 2023-09-03 14:47 | Outpatient (BNVA) | payer BC, SELFPAY | PROVIDERS: PCP Internal Medicine; Visit Provider Surgery Vascular Surgery ==

== ENCOUNTER → 2023-10-22 10:14 | Outpatient (BNVA) | payer BC, SELFPAY | PROVIDERS: PCP Internal Medicine; Visit Provider Nurse Practitioner Family ==

== ENCOUNTER 2023-10-22 10:23 | Outpatient (AMB) | payer BC, SELFPAY ==
[2023-10-22 10:33] VITALS: BP 126/67; PULSE 63; O2SAT 99; BMI 31.5
--- NOTE | 2023-10-22 10:33 | A.OFFVIS_ITS ---
Intake Vital Signs 10/22/23 10:33 Height 5 ft 2 in Weight 172 lb BMI 31.5 BP 126/67 Blood Pressure Location Lt brachial Position Sitting Pulse 63 Pulse Source Pulse Oximeter Pulse Oximetry (%) 99 Oxygen Delivery Method Room Air Intake Visit Reasons: Right Sprint Removal Intake Note: Shireen comes in today for Sprint removal, insertion site is clean with no redness, swelling or pathological drainage noted. Site was cleaned with ChloraPrep, Lead was removed with tip intact. Bacitacin was applied along with bandage. Pain today 0/10. Photograph Inspector Required: No Accompanied by: Daughter Allergies MULU Inhibitors Allergy (Unknown, Verified 10/22/23 10:43) Unknown amlodipine Allergy (Unknown, Verified 10/22/23 10:43) Angioedema atenolol Allergy (Unknown, Verified 10/22/23 10:43) Palpitations trospium Allergy (Unknown, Verified 10/22/23 10:43) Gastrointestinal Upset HPI HPI Comments History of Present Illness Details Patient presents today for Sprint removal. She had right L3 medial branch Sprint PNS lead placement on 08/26/[address] Campbell. Patient is Bangladeshi speaking female and is accompanied by her daughter who assists with translation per patient's request. Patient reports 100% ongoing pain relief for right axial low back pain and reports some improvement in her left sided back pain as well. She reports impr marge functioning, mobility and sleep. She would like to postpone left L3 MB Sprint lead placement due to significant chronic right ankle pain. Patient reports she was evaluated by Dr. Barriga and was told her mild venous insufficiency. She would like to proceed with Sprint PNS trial for right ankle pain that has been resistant to conservative treatments. It affects her mobility and functioning. She rates her right ankle pain at 6-7/10 and back pain at 0/10. Denies any recent cough, cold, infection, fever or other significant changes in medical history since last office visit. Past Procedures: 08/26/23: Right L3 MB Sprint PNS-100% pa in relief 07/15/23: Bilateral Diagnostic L3-L4 DR L5 MB-100% pain relief for 48 hours PRIOR: Patient is a pleasant 77 years old post speaking female presents today with severe bilateral lower extremity pain, right side worse than the left. Patient reports history of right ankle injury followed by repair in 2014. She has localized significant tenderness in both lower ankles and legs is light touch, allodynia, warmth to touch, skin changes and discoloration consistent with venous insufficiency, PVD and PAD, varicose and spider veins with clusters. Patient's family reports the patient underwent vascular evaluation 2 years ago and was told to wear compression stockings and elevate her legs. Patient denies any recent vascular evaluation for worsening of symptoms in both legs. She cannot tolerate pain due to pain and pressure. Her back pain is mostly axial and does not radiate to her legs. SLR testing is negative bilaterally. Patient also has localized tenderness in the projection of bilateral sacroiliac joints. Denies numbness, tingling, burning, bladder or bowel incontinence or saddle anesthesia. No lumbar spine imaging is available today for review. 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 Recent right ankle xray showed question old trauma to the medial malleolus. 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 Calcaneal spurs. Patient was seen by our [facility] provider and was prescribed topical compound cream. Patient ambulates with significant antalgic gait with limping and uses cane. [facility] Medical History (Updated 10/22/23 @ 20:15 by DB Batres) History of fracture of right ankle History of high blood pressure History of high cholesterol Social History Alcohol intake: former Patient Tobacco Use Status: Former Tobacco user Current occupational status: retired Review of Systems Const All systems reviewed & are unremarkable except as noted in HPI and below Physical Exam Vital Signs: Last Vital Signs Pulse 63 10/22/23 10:33 BP 126/67 10/22/23 10:33 Pulse Ox 99 10/22/23 10:33 Oxygen Delivery Method Room Air 10/22/23 10:33 BMI result Body Mass Index 31.5 General: Appears afebrile. Alert and oriented. Mood and affect appropriate. Follows and participates in conversation appropriately. Respiratory effort is unlabored. No cough. Able to transition from sit to stand with assistance from family. Uses cane with ambulation. Lead Insertion Site: Lead insertion site looks clean, dry, intact. Lead pulled with tip intact. Extrem General: Yes capillary refill normal, No cyanosis and Yes edema (+2 right ankle edema, chronic) Right lower extremity: ankle (TTP to lateral and medial aspects of ankle. +Allodynia to touch) Details: tenderness and swelling Details: diffusely; no unusual warmth, no ecchymosis and no crepitus Results Reviewed Results Reviewed: MRI of the right lower extremity, obtained on 11/07/2022 at [facility], revealed: 1. 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 2. Multiple areas of fatty muscular atrophy in the right lower leg. No evidence of muscle edema to suggest an acute injury. XR ANKLE, RIGHT 03/24/23 FINDINGS: There is periosteal thickening of the medial malleolus questionable for old trauma or a healing fracture. No acute fracture or dislocation. Arthritis at the tibiotalar joint. Collapse of the plantar arch. Joint space narrowing and osteophyte formation of the bones of the midfoot. Calcaneal spurs. Mild soft tissue arterial calcification. IMPRESSION: Question old trauma to the medial malleolus. 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 Calcaneal spurs. Assessment & Plan Assessment & Plan (1) Lumbar degenerative disc disease: Code(s): M51.36 - Other intervertebral disc degeneration, lumbar region (2) Lumbar spondylosis: Code(s): M47.816 - Spondylosis without myelopathy or radiculopathy, lumbar region (3) Right ankle pain: Code(s): M25.571 - Pain in right ankle and joints of right foot (4) History of fracture of right ankle: Code(s): Z87.81 - Personal history of (healed) traumatic fracture Plan 1. Right L3 Medial Branch Sprint PNS lead removed today. Pain 0/10. Patient will continue to monitor her low back pain. 2. Schedule Right Sciatic nerve Peripheral Nerve Stimulation Trial Lead Kelly cement with local and US guidance for chronic right ankle injury. Anticoagulation on Pradaxa is noted. All questions were answered and the patient is in agreement with the treatment plan. Follow up after Sprint trial and sooner if needed. Anticoagulation: Patient on anticoagulation (Pradaxa) and instructions given on when to pause with prescribing physician permission. Justification for interventional therapy: ? Patient with average pain > 6/10 ? Patient has exhausted conservative therapy The risks, consequences, alternatives, and benefits of various treatment options were discussed with the patient in great detail, including conservative management, injections and procedures. Coding Level of Care Code Est Pt Level 4 (97410) Diagnoses Lumbar degenerative disc disease M51.36 Lumbar spondylosis M47.816 Right ankle pain M25.571 History of fracture of right ankle Z87.81
== END 2023-10-22 10:59 | disposition home or self-care (01) ==
PROVIDERS: PCP Internal Medicine; Visit Provider Nurse Practitioner Family
DX: M51.36 Other intervertebral disc degeneration, lumbar region (principal); M47.816 Spondylosis without myelopathy or radiculopathy, lumbar region; M25.571 Pain in right ankle and joints of right foot; Z87.81 Personal history of (healed) traumatic fracture
CPT/HCPCS: 99214

== ENCOUNTER 2023-12-10 06:19 | Outpatient (REF) | payer BC, SELFPAY | END 2023-12-10 06:20 | disposition home or self-care (01) | LOC: CF 06:19 | PROVIDERS: Visit Provider Internal Medicine | DX: G90.521 Complex regional pain syndrome I of right lower limb (principal); M25.571 Pain in right ankle and joints of right foot | CPT/HCPCS: 64555; C1778 ==

== ENCOUNTER 2023-12-10 14:41 | Outpatient (AMB) | payer BC, SELFPAY ==
--- NOTE | 2023-12-10 14:41 | MHC.OFFVIS ---
Intake Vital Signs 12/10/23 16:14 12/10/23 16:14 Height 5 ft 2 in 5 ft 2 in Weight 172 lb 172 lb BMI 31.5 31.5 BP 114/58 L 128/60 Blood Pressure Location Lt brachial Lt brachial Position Sitting Sitting Respiration 14 14 Pulse 69 80 Pulse Source Pulse Oximeter Pulse Oximeter Pulse Oximetry (%) 94 98 Oxygen Delivery Method Room Air Room Air Comment pre-op post-op Intake Visit Reasons: right sciatic nerve Sprint Allergies MULU Inhibitors Allergy (Unknown, Verified 12/10/23 16:15) Unknown amlodipine Allergy (Unknown, Verified 12/10/23 16:15) Angioedema atenolol Allergy (Unknown, Verified 12/10/23 16:15) Palpitations trospium Allergy (Unknown, Verified 12/10/23 16:15) Gastrointestinal Upset HPI right sciatic nerve Sprint HPI Details Patient presents for scheduled procedure. Denies any recent cough, cold, infection, fever or other significant changes in medical history since last office visit. [facility] Medical History (Updated 12/10/23 @ 16:17 by Chencho Campbell MD) History of fracture of right ankle History of high blood pressure History of high cholesterol Social History Alcohol intake: former Patient Tobacco Use Status: Former Tobacco user Current occupational status: retired Office Procedures Details: Peripheral Nerve Stimulation Temporary Lead Placement, Ultrasound-Guided, Peroneal Segment of the Sciatic Nerve, [side] ? After the risks, benefits and alternatives were discussed with the patient and informed consent was obtained, patient was placed in the supine position and padded to foster comfort. Appropriate skin and bony landmarks were identified, and pertinent vascular structures were located. The skin overlying the needle entry site was prepped and draped in sterile fashion. Ultrasound was used to identify the popliteal artery and the peroneal segment of the sciatic nerve. After identifying and marking the intended target along the course of the peroneal segment of the sciatic nerve, the skin around the planned entry point and the subcutaneous tissues were injected with local anesthetic. An introducer needle and stimulating probe were assembled, inserted and advanced along the intended course of the peroneal segment of the sciatic nerve, taking care to maintain the proper depth of insertion as the introducer was advanced under ultrasound guidance. The introducer needle was delivered to a location in proximity to the nerve taking care not to puncture the popliteal artery or the vein. Multiple stimulation parameters were used to deliver stimulation to the peroneal segment of the sciatic nerve in concert with stimulating at multiple positions around the nerve. Nerve target acquisition was confirmed noting generation of sensory and mild motor effects (paresthesia, muscle tension, etc) in the lateral leg and ankle; corresponding to the distribution of the peroneal segment of the sciatic nerve. Various electrical parameter combinations were tested, and the lead location was adjusted (physically relocated under ultrasound guidance) until the patient indicated lateral leg and ankle paresthesia overlapping the distribution of the patient?s typical region of pain. The stimulating probe was removed from the introducer and a percutaneous lead was guided through the needle and delivered to a location in similar proximity to the nerve. Final location was verified with electrical stimulation and documented. The introducer needle was removed, and the exposed end of the percutaneous lead was attached to an external stimulator unit. Various electrical parameter combinations were again tested until the patient indicated paresthesia and muscle tension overlapping the distribution of the patient?s typical region of pain. After confirming that lead impedance was in the normal range, the external unit was detached, the needle was removed, and the lead was anchored at the skin. The lead was threaded into the connector block and electrical continuity and desired patient response was confirmed. The connector block was attached to the external stimulator unit. The site was covered with a sterile occlusive dressing. A final ultrasound image was taken to document final placement. The patient was observed for stability of vital signs and comfort. Sprint PNS Device: Sprint PNS Device [id number] Percutaneous Peripheral Neuroelectrode Procedure: 27451 - Percutaneous Peripheral Neuroelectrode Procedure code (CPT) selection complete Office Meds lidocaine (PF) 50 mg/5 mL (1 %) injection syringe Performing Provider: Chencho Campbell MD Performing Location: [facility] Administered by: Tianna Fontanez LPN on 12/10/23 15:42 Dose Route Admin Location Dispensed Lot Number Expiration Date [facility] Marriage Counselor Minister 5 mL subcut 5 mL [id number] 08/09/26 04567-926-52 [employer] Assessment & Plan Assessment & Plan (1) Right ankle pain: Code(s): M25.571 - Pain in right ankle and joints of right foot (2) CRPS (complex regional pain syndrome) type I of lower limb: Code(s): G90.529 - Complex regional pain syndrome I of unspecified lower limb Plan Patient is status post temporary PNS placement for the peroneal segment of the sciatic nerve. Patient tolerated procedure well and was discharged home in stable condition with discharge instructions. All questions were answered. We will follow-up via telephone or in clinic to assess response to therapy. A follow-up appointment was made during today's visit. Orders: Orders [place] guidance in treatment room Today M25.571 - Pain in right ankle and joints of right foot Matilda Jones, NOVELTY MAKER, LEAD POURER AMB Sprint PNS Today M25.571 - Pain in right ankle and joints of right foot Chencho Campbell MD Coding Level of Care Code Procedure Only Diagnoses Right ankle pain M25.571 CRPS (complex regional pain syndrome) type I of lower limb G90.529 CPT Codes Sprint PNS - Sprint PNS Device: Sprint PNS Device ([id number]) Sprint PNS - SPRINT: 63820 - Percutaneous Peripheral Neuroelectrode ([id number]) Implantable Device Implantable Device Implantable Devices Qty Marriage Counselor Minister Implant Date Expiration Date Analgesic PENS system 1 [employer] 12/10/23 05/08/25
[2023-12-10 16:14] VITALS: BP 114/58; BP 128/60; PULSE 69; PULSE 80; RESP 14; O2SAT 94; O2SAT 98; BMI 31.5
== END 2023-12-10 15:56 | disposition home or self-care (01) ==
LOC: HO.PMCPRC 14:41
PROVIDERS: PCP Internal Medicine; Visit Provider Internal Medicine
DX: M25.571 Pain in right ankle and joints of right foot (principal); G90.529 Complex regional pain syndrome I of unspecified lower limb
CPT/HCPCS: 64555

== ENCOUNTER 2023-12-17 14:02 | Outpatient (AMB) | payer BC, SELFPAY ==
[2023-12-17 14:16] VITALS: BP 148/84; PULSE 88; RESP 18; O2SAT 94; BMI 33.1
--- NOTE | 2023-12-17 14:16 | MHC.OFFVIS ---
Intake Vital Signs 12/17/23 14:16 Height 5 ft 2 in Weight 181 lb BMI 33.1 BP 148/84 H Blood Pressure Location Lt brachial Position Sitting Respiration 18 Pulse 88 Pulse Source Pulse Oximeter Pulse Oximetry (%) 94 Oxygen Delivery Method Room Air Intake Visit Reasons: s/p right sciatic nerve Sprint/lvm Allergies MULU Inhibitors Allergy (Unknown, Verified 12/17/23 14:16) Unknown amlodipine Allergy (Unknown, Verified 12/17/23 14:16) Angioedema atenolol Allergy (Unknown, Verified 12/17/23 14:16) Palpitations trospium Allergy (Unknown, Verified 12/17/23 14:16) Gastrointestinal Upset HPI HPI Comments History of Present Illness Details Patient presents today one week status post right sciatic nerve Sprint PNS lead placement on 12/10/[address] Campbell. Patient is Iraqi speaking female and is accompanied by her daughter who assists with translation per patient's request. Patient reports 60% ongoing pain relief for right lower leg with partial improvement in her right ankle symptoms. She reports unpleasant right lateral leg and partially dorsal and lateral right foot with overstimulation. Her current settings are set at 22 without paresthesia or stimulation sensation. We increased it to 28 when patient reported stimulation in her right foot and partially in her right lower leg which was tolerated. She will continue to adjust her settings and monitor her pain levels. Family reports they are comfortable to change patient's dressings and assist with device care. Patient denies any recent cough, cold, infection, fever or other significant changes in medical history since last office visit. The dressing was removed today. Lead insertion sites look clean, dry, intact, no redness, no swelling, no pathological discharge. Area was cleansed with Chloraprep and covered with Sprint Tegaderm film and gauze dressing. Lead remains intact with surgical skin glue. Past Procedures: 12/10/23: Right Sciatic nerve Sprint PNS-60% pain relief 08/26/23: Right L3 MB Sprint PNS-100% pain relief 07/15/23: Bilateral Diagnostic L3-L4 DR L5 MB-100% pain relief for 48 hours PRIOR: Patient is a pleasant 77 years old post speaking female presents today with severe bilateral lower extremity pain, right side worse than the left. Patient reports history of right ankle injury followed by repair in 2014. She has localized significant tenderness in both lower ankles and legs is light touch, allodynia, warmth to touch, skin changes and discoloration consistent with venous insufficiency, PVD and PAD, varicose and spider veins with clusters. Patient's family reports the patient underwent vascular evaluation 2 years ago and was told to wear compression stockings and elevate her legs. Patient denies any recent vascular evaluation for worsening of symptoms in both legs. She cannot tolerate pain due to pain and pressure. Her back pain is mostly axial and does not radiate to her legs. SLR testing is negative bilaterally. Patient also has localized tenderness in the projection of bilateral sacroiliac joints. Denies numbness, tingling, burning, bladder or bowel incontinence or saddle anesthesia. No lumbar spine imaging is available today for review. Per 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 Recent right ankle xray showed question old trauma to the medial malleolus. 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 Calcaneal spurs. Patient was seen by our [facility] provider and was prescribed topical compound cream. Patient ambulates with significant antalgic gait with limping and uses cane. [facility] Medical History History of fracture of right ankle History of high blood pressure History of high cholesterol Social History Alcohol intake: former Patient Tobacco Use Status: Former Tobacco user Current occupational status: retired Review of Systems Const All systems reviewed & are unremarkable except as noted in HPI and below Physical Exam Vital Signs: Last Vital Signs Pulse 88 12/17/23 14:16 Resp 18 12/17/23 14:16 BP 148/84 H 12/17/23 14:16 Pulse Ox 94 12/17/23 14:16 Oxygen Delivery Method Room Air 12/17/23 14:16 BMI result Body Mass Index 33.1 General: Appears afebrile. Alert and oriented. Mood and affect appropriate. Follows and participates in conversation appropriately. Respiratory effort is unlabored. No cough. Able to transition from sit to stand with assistance from family. Uses cane with ambulation. Lead Insertion Site: Lead insertion sites look clean, dry, intact. No pathological discharge, no swelling and no erythema. Lead site dressing changed today in the clinic. Positive parasthesia at 28 right lower leg and ankle. Results Reviewed Results Reviewed: MRI of the right lower extremity, obtained on 11/07/2022 at [facility], revealed: 1. 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 2. Multiple areas of fatty muscular atrophy in the right lower leg. No evidence of muscle edema to suggest an acute injury. XR ANKLE, RIGHT 03/24/23 FINDINGS: There is periosteal thickening of the medial malleolus questionable for old trauma or a healing fracture. No acute fracture or dislocation. Arthritis at the tibiotalar joint. Collapse of the plantar arch. Joint space narrowing and osteophyte formation of the bones of the midfoot. Calcaneal spurs. Mild soft tissue arterial calcification. IMPRESSION: Question old trauma to the medial malleolus. 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 Calcaneal spurs. Assessment & Plan Assessment & Plan (1) Right ankle pain: Code(s): M25.571 - Pain in right ankle and joints of right foot (2) CRPS (complex regional pain syndrome) type I of lower limb: Code(s): G90.529 - Complex regional pain syndrome I of unspecified lower limb Plan Patient is status post temporary PNS placement for the peroneal segment of the sciatic nerve on 12/10/23 with ongoing 60% pain relief. Patient will continue to adjust her stimulation settings and monitor her pain levels. Currently set at 28. Dressing change done in clinic today and will be continued by family at home. All questions and concerns have been answered and patient agreed with the plan. Follow up for Sprint removal and sooner as needed. Coding Level of Care Code Est Pt Level 3 (28222) Diagnoses Right ankle pain M25.571 CRPS (complex regional pain syndrome) type I of lower limb G90.529
== END 2023-12-17 14:31 | disposition home or self-care (01) ==
PROVIDERS: PCP Internal Medicine; Visit Provider Nurse Practitioner Family
DX: M25.571 Pain in right ankle and joints of right foot (principal); G90.529 Complex regional pain syndrome I of unspecified lower limb
CPT/HCPCS: 99024

== ENCOUNTER → 2023-12-17 14:02 | Outpatient (BNVA) | payer BC, SELFPAY | PROVIDERS: PCP Internal Medicine; Visit Provider Nurse Practitioner Family ==

== ENCOUNTER 2024-02-04 13:57 | Outpatient (AMB) | payer BC, SELFPAY ==
--- NOTE | 2024-02-04 14:00 | MHC.OFFVIS ---
Intake Vital Signs 02/04/24 14:05 Height 5 ft 2 in Weight 160 lb BMI 29.3 BP 176/95 H Blood Pressure Location Lt brachial Position Sitting Pulse 75 Pulse Source Pulse Oximeter Pulse Oximetry (%) 98 Oxygen Delivery Method Room Air Intake Visit Reasons: Sprint removal Intake Note: Pain today 01/16 Heat Treat Worker Required: Yes Accompanied by: Family/Other Allergies MULU Inhibitors Allergy (Unknown, Verified 02/04/24 14:05) Unknown amlodipine Allergy (Unknown, Verified 02/04/24 14:05) Angioedema atenolol Allergy (Unknown, Verified 02/04/24 14:05) Palpitations trospium Allergy (Unknown, Verified 02/04/24 14:05) Gastrointestinal Upset HPI HPI Comments History of Present Illness Details Patient presents today for right sciatic nerve Sprint removal. Patient reports overall 60-70% ongoing pain relief with decreased sensitivity in her right lower leg and right ankle. She continues to experience anterior burning and tinging sensations in the right chacon and lateral right leg to light touch with mild swelling and skin discoloration. She has been taking duloxetine and Tylenol with some benefit. Patient states stimulation settings were increased to 38 since last visit until today. She reports partial improvement in her symptoms since PNS trial in her daily functioning, mobility, and sleep. Denies any recent cough, cold, infection, fever, any significant changes in her medical history, medications or recent hospitalizations. The dressing was removed today. Lead insertion sites look clean, dry, intact, no redness, no swelling, no pathological discharge. Area was cleansed with Chloraprep. Lead pulled with tip intact and the area was cleansed again with Chloraprep, applied Bacitracin and covered it with gauze and Tegaderm film dressing. Past Procedures: 02/04/24: Right Sciatic nerve Sprint [id number]% pain relief 12/10/23: Right Sciatic nerve Sprint PNS-60% pain relief 08/26/23: Right L3 MB Sprint PNS-100% pain relief 07/15/23: Bilateral Diagnostic L3-L4 DR L5 MB-100% pain relief for 48 hours PRIOR: Patient is a pleasant 77 years old post speaking female presents today with severe bilateral lower extremity pain, right side worse than the left. Patient reports history of right ankle injury followed by repair in 2014. She has localized significant tenderness in both lower ankles and legs is light touch, allodynia, warmth to touch, skin changes and discoloration consistent with venous insufficiency, PVD and PAD, varicose and spider veins with clusters. Patient's family reports the patient underwent vascular evaluation 2 years ago and was told to wear compression stockings and elevate her legs. Patient denies any recent vascular evaluation for worsening of symptoms in both legs. She cannot tolerate pain due to pain and pressure. Her back pain is mostly axial and does not radiate to her legs. SLR testing is negative bilaterally. Patient also has localized tenderness in the projection of bilateral sacroiliac joints. Denies numbness, tingling, burning, bladder or bowel incontinence or saddle anesthesia. No lumbar spine imaging is available today for review. 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 Recent right ankle xray showed question old trauma to the medial malleolus. 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 Calcaneal spurs. Patient was seen by our [facility] provider and was prescribed topical compound cream. Patient ambulates with significant antalgic gait with limping and uses cane. [facility] Medical History History of fracture of right ankle History of high blood pressure History of high cholesterol Social History Alcohol intake: former Patient Tobacco Use Status: Former Tobacco user Current occupational status: retired Review of Systems Const All systems reviewed & are unremarkable except as noted in HPI and below Physical Exam Vital Signs: Last Vital Signs Pulse 75 02/04/24 14:05 BP 176/95 H 02/04/24 14:05 Pulse Ox 98 02/04/24 14:05 Oxygen Delivery Method Room Air 02/04/24 14:05 BMI result Body Mass Index 29.3 General: Appears afebrile. Alert and oriented. Mood and affect appropriate. Follows and participates in conversation appropriately. Respiratory effort is unlabored. No cough. Able to transition from sit to stand with assistance from family. Uses cane with ambulation. Lead Insertion Site: Lead insertion sites look clean, dry, intact. No pathological discharge, no swelling and no erythema. Lead pulled with tip intact. Results Reviewed Results Reviewed: MRI of the right lower extremity, obtained on 11/07/2022 at [facility], revealed: 1. 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 2. Multiple areas of fatty muscular atrophy in the right lower leg. No evidence of muscle edema to suggest an acute injury. XR ANKLE, RIGHT 03/24/23 FINDINGS: There is periosteal thickening of the medial malleolus questionable for old trauma or a healing fracture. No acute fracture or dislocation. Arthritis at the tibiotalar joint. Collapse of the plantar arch. Joint space narrowing and osteophyte formation of the bones of the midfoot. Calcaneal spurs. Mild soft tissue arterial calcification. IMPRESSION: Question old trauma to the medial malleolus. 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 Calcaneal spurs. Assessment & Plan Assessment & Plan (1) CRPS (complex regional pain syndrome) type I of lower limb: Code(s): G90.529 - Complex regional pain syndrome I of unspecified lower limb (2) Right ankle pain: Code(s): M25.571 - Pain in right ankle and joints of right foot (3) History of fracture of right ankle: Code(s): Z87.81 - Personal history of (healed) traumatic fracture Plan Patient presented today for removal of a temporary PNS of the right saphenous nerve. She reports 60-70% ongoing pain relief with improved functioning, mobility and better sleep. Lead removed with tip intact. Refill provided for duloxetine with increased dose at 30 mg BID. Side effects and precautions were reviewed with patient and her daughter. All questions and concerns have been answered and patient agreed with the plan. Follow up as needed. Medications: Changed From duloxetine 20 mg PO BID G90.529 - Complex regional pain syndrome I of unspecified lower limb, M25.571 - Pain in right ankle and joints of right foot, Z87.81 - Personal history of (healed) traumatic fracture To duloxetine 30 mg PO BID 30 days 60 caps 0RF pain G90.529 - Complex regional pain syndrome I of unspecified lower limb, M25.571 - Pain in right ankle and joints of right foot, Z87.81 - Personal history of (healed) traumatic fracture Coding Level of Care Code Est Pt Level 3 (53684) Diagnoses CRPS (complex regional pain syndrome) type I of lower limb G90.529 Right ankle pain M25.571 History of fracture of right ankle Z87.81
[2024-02-04 14:05] VITALS: BP 176/95; PULSE 75; O2SAT 98; BMI 29.3
== END 2024-02-04 14:35 | disposition home or self-care (01) ==
PROVIDERS: PCP Internal Medicine; Visit Provider Nurse Practitioner Family
DX: G90.529 Complex regional pain syndrome I of unspecified lower limb (principal); M25.571 Pain in right ankle and joints of right foot; Z87.81 Personal history of (healed) traumatic fracture
CPT/HCPCS: 99213

== ENCOUNTER → 2024-02-04 13:57 | Outpatient (BNVA) | payer BC, SELFPAY | PROVIDERS: PCP Internal Medicine; Visit Provider Nurse Practitioner Family ==